=== PATIENT | female | born 1965 | race Caucasian/White ===

== ENCOUNTER 2019-06-24 09:24 | Day surgery (SDC) | payer BC ==
[~2019-06-24] VITALS: Ht 157.5 cm; Wt 91.6 kg
[~2019-06-24 09:24] MED LIST: ACID REDUCER20 MG PO; ATOR10 PO; CHOL10002; Cipro500 MG PO; ESCI5 PO; ESTR.625; FAMO20 PO; HYDACE5 PO; Hair, Skin & N1 EACH; IBUP100S PO; IBUP600 PO; LETR2.5 PO; MELA3 PO; Nexium40 MG; Nortriptyline H25 MG; PHENDIMETRAZINE PO; ROSU10TA PO; Zantac150 MG
--- NOTE | 2019-06-24 10:31 | NUR ---
06/24/19 1031 Enriqueta Jo 1ST I.V. ATTEMPT IN RIGHT HAND BY NARESH 2ND I.V. ATTEMPT IN RIGHT HAND BY NARESH 3RD I.V. ATTEMPT IN RIGHT AC BY NARESH SUCCESSFUL
== END 2019-06-24 11:55 | disposition home or self-care (01) ==
LOC: ORSCSDS 09:24
PROVIDERS: Internal Medicine Gastroenterology
PROC: 0DBK8ZX Excision of Ascending Colon, Via Natural or Artificial Opening Endoscopic, Diagnostic (ICD-10-PCS; principal; 2019-06-24 11:00)
PROC: 0DBH8ZX Excision of Cecum, Via Natural or Artificial Opening Endoscopic, Diagnostic (ICD-10-PCS; principal; 2019-06-24 11:00)
PROC: 0DBN8ZX Excision of Sigmoid Colon, Via Natural or Artificial Opening Endoscopic, Diagnostic (ICD-10-PCS; principal; 2019-06-24 11:00)
DX: R63.4 Abnormal weight loss (principal); D12.0 Benign neoplasm of cecum; D12.5 Benign neoplasm of sigmoid colon; D37.4 Neoplasm of uncertain behavior of colon; K57.30 Diverticulosis of large intestine without perforation or abscess without bleeding; K64.8 Other hemorrhoids; E78.5 Hyperlipidemia, unspecified; K21.9 Gastro-esophageal reflux disease without esophagitis; Z79.899 Other long term (current) drug therapy
CPT/HCPCS: 88305; J2704; J7120